=== PATIENT | female | born 1960 | race Caucasian/White ===

== ENCOUNTER → 2024-12-18 | Outpatient (CLI) | payer BC, SELFPAY ==
[2024-12-18 14:36] LABS: Creatinine, Serum 0.62 mg/dL (0.70-1.20); EST Glomerular Filtration Rate 101 (>60); Potassium 3.4 mmol/L (3.3-5.1)
== END | disposition home or self-care (01) ==
LOC: LABSPEC 12:25
DX: K57.20 Diverticulitis of large intestine with perforation and abscess without bleeding (principal)
CPT/HCPCS: 82565; 84132

== ENCOUNTER 2024-12-25 11:50 | Outpatient (RCR) | payer BC, SELFPAY ==
[2024-12-15 12:44] LABS: Absolute Lymphocyte Count 0.52 X10^3/uL (0.83-4.51); Absolute Neutrophil Count 5.5 X10^3/uL (2.0-7.7); Basophil# 0.05 X10^3/uL; Basophil% 0.7 % (0-1); Eosinophil# 0.16 X10^3/uL; Eosinophils% 2.2 % (0-5); Hematocrit 27.5 % (37-47); Hemoglobin 8.4 g/dL (12.0-15.0); Lymphocyte # 0.52 X10^3/ul (0.83-4.51); Lymphocyte % 7.1 % (19-41); Mean Corp Hgb Conc 30.5 g/dL (32-36); Mean Corpuscular Hgb 30.3 pg (27.0-32.0); Mean Corpuscular Volume 99.3 fL (81-99); Mean Platelet Vol. 9.7 fl (6.2-12.0); Monocyte# 0.77 X10^3/uL; Monocyte% 10.5 % (0-10); NRBC Flagged by Analyzer 0 % (0-5); POSITIVE DIFFERENTIAL YES; Platelet Count 225 K/mm3 (150-450); RBC Distribution Width CV 16.3 % (11.6-14.6); RBC Distribution Width SD 60.3 fl (35.1-43.9); Red Blood Count 2.77 M/mm3 (4.2-5.4); White Blood Count 7.3 K/mm3 (4.4-11.0)
[2024-12-15 13:12] LABS: AST(SGOT) 17 U/L (<=31); Alanine Aminotransfer ALT/SGPT 21 U/L (<=34); Alkaline Phosphatase 96 U/L (35-104); Bilirubin, Direct 0.11 mg/dL (0.00-0.30); Creatinine, Serum 0.59 mg/dL (0.70-1.20); EST Glomerular Filtration Rate 102 (>60); Globulin 2.4 g/dL (2.2-4.2); Magnesium 1.8 mg/dL (1.5-2.2); Potassium 3.7 mmol/L (3.3-5.1); Protein, Total 5.3 g/dL (5.9-8.4); Total Bilirubin 0.17 mg/dL (0.00-1.30)
[2024-12-15 13:36] LABS: Vancomycin, Trough Level 8.9 ug/mL (5.0-15.0)
[2024-12-22 15:24] LABS: Hematocrit 31.6 % (37-47); Hemoglobin 9.3 g/dL (12.0-15.0); Mean Corp Hgb Conc 29.4 g/dL (32-36); Mean Corpuscular Hgb 30.3 pg (27.0-32.0); Mean Corpuscular Volume 102.9 fL (81-99); Mean Platelet Vol. 10.3 fl (6.2-12.0); POSITIVE COUNT YES; POSITIVE MORPHOLOGY YES; Platelet Count 227 K/mm3 (150-450); RBC Distribution Width CV 17.6 % (11.6-14.6); RBC Distribution Width SD 65.8 fl (35.1-43.9); Red Blood Count 3.07 M/mm3 (4.2-5.4); White Blood Count 10.1 K/mm3 (4.4-11.0)
[2024-12-22 15:40] LABS: AST(SGOT) 125 U/L (<=31); Alanine Aminotransfer ALT/SGPT 126 U/L (<=34); Albumin, Serum 3.2 g/dL (3.4-4.8); Alkaline Phosphatase 93 U/L (35-104); Bilirubin, Direct 0.11 mg/dL (0.00-0.30); Creatinine, Serum 0.63 mg/dL (0.70-1.20); EST Glomerular Filtration Rate 100 (>60); Globulin 2.7 g/dL (2.2-4.2); Magnesium 1.7 mg/dL (1.5-2.2); Potassium 3.6 mmol/L (3.3-5.1); Protein, Total 5.8 g/dL (5.9-8.4); Total Bilirubin 0.21 mg/dL (0.00-1.30)
[2024-12-22 16:26] LABS: Vancomycin, Trough Level 17.6 ug/mL (5.0-15.0)
[2024-12-22 21:19] LABS: Differential Indicated MANUAL DIFF
[2024-12-22 21:31] LABS: Eosinophil 2 % (0-5); Lymphocyte 6 % (19-41); Metamyelocyte 9 % (0-1); Monocyte 2 % (0-10); Neutrophil-Segmented 81 % (47-70)
[2024-12-22 21:34] LABS: Absolute Lymphocyte Count 0.61 X10^3/uL (0.83-4.51); Absolute Neutrophil Count 8.2 X10^3/uL (2.0-7.7)
[2024-12-22 21:36] LABS: Platelet Estimate ADEQUATE (ADEQ)
[2024-12-22 21:43] LABS: Anisocytosis 1+; Macrocytosis RARE
[2024-12-22 21:44] LABS: Burr Cells RARE; Ovalocyte RARE
[2024-12-23 15:29] LABS: Pathologist Review Reviewed
[2024-12-25 16:31] LABS: Creatinine, Serum 0.77 mg/dL (0.70-1.20); EST Glomerular Filtration Rate 87 (>60)
== END 2024-12-31 23:59 ==
LOC: LABSPEC 11:50
DX: K65.1 Peritoneal abscess (principal)
CPT/HCPCS: 80076; 80202; 82565; 83735; 84132; 85025; 86140

== ENCOUNTER → 2024-12-29 | Outpatient (CLI) | payer BC, SELFPAY ==
[2024-12-29 13:56] LABS: Absolute Lymphocyte Count 0.53 X10^3/uL (0.83-4.51); Absolute Neutrophil Count 4.9 X10^3/uL (2.0-7.7); Basophil# 0.04 X10^3/uL; Basophil% 0.6 % (0-1); Eosinophil# 0.25 X10^3/uL; Eosinophils% 3.9 % (0-5); Hematocrit 33.4 % (37-47); Hemoglobin 10.1 g/dL (12.0-15.0); Lymphocyte # 0.53 X10^3/ul (0.83-4.51); Lymphocyte % 8.2 % (19-41); Mean Corp Hgb Conc 30.2 g/dL (32-36); Mean Corpuscular Hgb 31.2 pg (27.0-32.0); Mean Corpuscular Volume 103.1 fL (81-99); Mean Platelet Vol. 10.1 fl (6.2-12.0); Monocyte# 0.63 X10^3/uL; Monocyte% 9.7 % (0-10); NRBC Flagged by Analyzer 0 % (0-5); Neutrophil # 4.91 X10^3/uL (2.7-7.7); Neutrophil % 75.6 % (47-70); POSITIVE DIFFERENTIAL YES; POSITIVE MORPHOLOGY YES; Platelet Count 206 K/mm3 (150-450); RBC Distribution Width CV 17.6 % (11.6-14.6); RBC Distribution Width SD 66.9 fl (35.1-43.9); Red Blood Count 3.24 M/mm3 (4.2-5.4); White Blood Count 6.5 K/mm3 (4.4-11.0)
[2024-12-29 13:58] LABS: Differential Indicated SCAN CRITERIA MET
[2024-12-29 14:44] LABS: AST(SGOT) 98 U/L (<=31); Alanine Aminotransfer ALT/SGPT 92 U/L (<=34); Albumin, Serum 3.2 g/dL (3.4-4.8); Alkaline Phosphatase 82 U/L (35-104); Creatinine, Serum 0.68 mg/dL (0.70-1.20); EST Glomerular Filtration Rate 98 (>60); Globulin 2.5 g/dL (2.2-4.2); Potassium 3.1 mmol/L (3.3-5.1); Protein, Total 5.7 g/dL (5.9-8.4); Total Bilirubin 0.25 mg/dL (0.00-1.30)
[2024-12-29 15:02] LABS: Vancomycin, Random Level 22.7 ug/mL (0.0-15.0)
[2024-12-29 16:37] LABS: Magnesium 1.7 mg/dL (1.5-2.2)
== END | disposition home or self-care (01) ==
LOC: LABSPEC 13:09
DX: K65.1 Peritoneal abscess (principal)
CPT/HCPCS: 80076; 80202; 82565; 83735; 84132; 85025; 86140